=== PATIENT | female | born 1975 | race African-American/Black ===

== ENCOUNTER 2025-02-06 07:47 | Emergency (ER) | payer BC, OTHER ==
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
--- NOTE | 2025-02-06 08:30 | RAD REPORT ---
Procedure: Chest Single View HISTORY: Chest pain COMPARISON: September 2024 FINDINGS: The lungs appear clear of acute infiltrate. No significant pleural effusion noted. The heart is normal size. IMPRESSION: No acute abnormality is displayed.
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
[2025-02-06] MEDS ORDERED: KETOROLAC 30 MG/ML INJ ONE (08:46)
[2025-02-06] MEDS ORDERED: CYCLOBENZAPRINE 10 MG TAB ONE (08:46)
[2025-02-06 09:00] VITALS: BP 161/100; O2SAT 100
== END 2025-02-06 08:55 | disposition home or self-care (01) ==
LOC: ER 07:47
DX: S16.1XXA Strain of muscle, fascia and tendon at neck level, initial encounter (principal); S50.812A Abrasion of left forearm, initial encounter; V49.40XA Driver injured in collision with unspecified motor vehicles in traffic accident, initial encounter
CPT/HCPCS: 70450; 71045; 72125

== ENCOUNTER 2025-05-15 16:59 | Emergency (ER) | payer BC, OTHER ==
[2025-05-15 17:54] LABS: Absolute Lymphocytes (CBC) 1.5 K/uL (0.7-4.9); Hematocrit 39.3 % (36.0-45.0); Hemoglobin 13.2 g/dL (12.0-15.0); MCH 31.1 pg (27.0-35.0); MCHC 33.5 g/dL (32.0-36.0); MCV 92.9 fL (80-100); MPV 8.3 fL (7.6-11.3); Nucleated RBC Absolute Count 0.0 (0-0); Nucleated Red Blood Cells % 0.2 % (0-0); RBC Red Blood Cell Count 4.23 M/uL (3.86-4.86); White Blood Count 4.90 thou/uL (4.3-10.9)
[2025-05-15 18:11] LABS: ALT/SGPT 17 U/L (13-56); Albumin 3.8 g/dL (3.4-5.0); Albumin/Globulin Ratio 1.0 (1.1-1.8); Alkaline Phosphatase 83 U/L (45-117); Anion Gap 9.6 mEq/L (5.0-15.0); BUN Blood Urea Nitrogen 16 mg/dL (7-18); Globulin 3.8 g/dL (2.3-3.5); Glucose Level 101 mg/dL (74-106); Lipase 33 U/L (13-75); Potassium 3.6 mEq/L (3.5-5.1)
[2025-05-15 18:12] LABS: AST/SGOT < 10 U/L (15-37)
--- NOTE | 2025-05-15 18:46 | RAD REPORT ---
EXAM: Abdominal exam Limited ultrasound CLINICAL HISTORY: Abdominal pain COMPARISON: None FINDINGS: Gallbladder is contracted. Gallbladder wall appears thickened. A gallstone is not seen. Biliary tree normal caliber IMPRESSION: Limited evaluation of the gallbladder as it is contracted. Gallbladder wall appears thickened. This could be secondary to the gallbladder being contracted or in dicate chronic cholecystitis.
--- NOTE | 2025-05-15 19:09 | ER ---
Nurse's Notes [facility] Name: Susanne Lee Age: 49 yrs Sex: Female : 1975 Arrival Date: 05/15/2025 Time: 16:59 Bed 17 Private MD: Diagnosis: Upper abdominal pain, unspecified Presentation: 05/15 17:49 Chief complaint: Patient states: I have been having RUQ pain for the past 2 hours. jb4 Coronavirus screen: At this time, the client does not indicate any symptoms associated with coronavirus-19. Ebola Screen: No symptoms or risks identified at this time. Initial Sepsis Screen: Does the patient meet any 2 criteria? No. Patient's initial sepsis screen is negative. Does the patient have a suspected source of infection? No. Patient's initial sepsis screen is negative. Risk Assessment: Do you want to hurt yourself or someone else? Patient reports no desire to harm self or others. Onset of symptoms was May 15, 2025. Transition of care: patient was not received from another setting of care. 17:49 Method Of Arrival: Ambulatory jb4 17:49 Acuity: CAROLEE 3 jb4 Historical: - Allergies: 17:51 No Known Allergies; jb4 - PMHx: 17:51 Hypertensive disorder; IBS; high cholesterol; jb4 - PSHx: 17:51 hernia repairs; jb4 - Immunization history:: Adult Immunizations up to date. - Infectious Disease History:: Denies. - Social history:: Smoking status: Patient denies any tobacco usage or history of. Screenin:53 [facility] ED Fall Risk Assessment (Adult) History of falling in the last 3 months, jb4 including since admission No falls in past 3 months (0 pts) Confusion or Disorientation No (0 pts) Intoxicated or Sedated No (0 pts) Impaired Gait No (0 pts) Mobility Assist Device Used No (0 pt) Altered Elimination No (0 pt) Score/Fall Risk Level 0 - 2 = Low Risk Oriented to surroundings, Maintained a safe environment. Abuse screen: Denies threats or abuse. Nutritional screening: No deficits noted. Tuberculosis screening: No symptoms or risk factors identified. Assessment: 17:53 General: Appears in no apparent distress. uncomfortable, Behavior is calm, cooperative, jb4 appropriate for age. Pain: Complains of pain in right upper quadrant Pain does not radiate. Pain currently is 8 out of 10 on a pain scale. Neuro: Level of Consciousness is awake, alert, obeys commands, Oriented to person, place, time, situation. Cardiovascular: Patient's skin is warm and dry. Respiratory: Airway is patent Respiratory effort is even, unlabored, Respiratory pattern is regular, symmetrical. GI: Abdomen is flat, non-distended, Reports upper abdominal pain. Derm: Skin is intact, Skin is pink, warm \T\ dry. Musculoskeletal: Circulation, motion, and sensation intact. Range of motion: intact in all extremities. 19:32 Reassessment: Patient appears in no apparent distress at this time. Patient and/or jb4 family updated on plan of care and expected duration. Pain level reassessed. Patient is alert, oriented x 3, equal unlabored respirations, skin warm/dry/pink. Vital Signs: 17:49 BP 144 / 94; Pulse 77; Resp 16; Temp 98; Pulse Ox 100% on R/A; Weight 83.91 kg (R); jb4 Height 5 ft. 1 in. ; 19:32 BP 137 / 93; Pulse 75; Resp 16; Pulse Ox 98% ; jb4 17:49 Body Mass Index 34.96 (83.91 kg, 154.94 cm) jb4 ED Course: 17:03 Patient arrived in ED. cj3 17:04 Danitza Bautista FNP-C [facility]. kb 17:04 Collin Sahu MD is Attending Physician. kb 17:49 CBC with Diff Sent. jb4 17:49 CMP Sent. jb4 17:49 Lipase Sent. jb4 17:51 Triage completed. jb4 17:51 Arm band placed on right wrist. jb4 17:53 No provider procedures requiring assistance completed. Inserted saline lock: 20 gauge jb4 in right antecubital area, using aseptic technique. Blood collected. 17:53 Patient has correct armband on for positive identification. Bed in low position. Call jb4 light in reach. Side rails up X 1. Provided Education on: plan of care. 18:12 Abdomen Limited US In Process Unspecified. EDMS 19:32 IV discontinued, intact, bleeding controlled, No redness/swelling at site. Pressure jb4 dressing applied. Administered Medications: No medications were administered Medication: 17:53 VIS not applicable for this client. jb4 Outcome: 19:08 Discharge ordered by . suraj 19:32 Discharged to home ambulatory, jb4 19:32 Condition: stable 19:32 Discharge instructions given to patient, Instructed on discharge instructions, follow up and referral plans. medication usage, Demonstrated understanding of instructions, follow-up care, medications, Prescriptions given X 2, 19:32 Patient left the ED. jb4 Signatures: Dispatcher [employer] EDMS Danitza Bautista, EILEEN-[employer] DELIVERY CONSULTANT-Patrice Lee, RN RN jb4 Hui Golden cj3
--- NOTE | 2025-05-15 19:09 | EDPHYS ---
Physician Documentation [facility] Name: Susanne Lee Age: 49 yrs Sex: Female : 1975 Arrival Date: 05/15/2025 Time: 16:59 Bed 17 Private MD: ED Physician Collin Sahu HPI: 05/15 17:23 This 49 yrs old Black Female presents to ER via Unassigned with complaints of Abdominal kb Pain. 17:23 Patient is a 49-year-old female who presents for right upper quadrant pain that started kb 2 hours prior to arrival. Denies nausea, vomiting, diarrhea, fever. States she did start Trizepatide 2 weeks ago.. Historical: - Allergies: 17:51 No Known Allergies; jb4 - PMHx: 17:51 Hypertensive disorder; IBS; high cholesterol; jb4 - PSHx: 17:51 hernia repairs; jb4 - Immunization history:: Adult Immunizations up to date. - Infectious Disease History:: Denies. - Social history:: Smoking status: Patient denies any tobacco usage or history of. ROS: 17:25 Constitutional: As per HPI kb Exam: 17:25 Constitutional: This is a well developed, well nourished patient who is awake, alert, kb and in no acute distress. Head/Face: Normocephalic, atraumatic. ENT: Moist Mucous membranes Cardiovascular: Regular rate Respiratory: Respirations even and unlabored. No increased work of breathing. Talking in full sentences Skin: Warm, dry with normal turgor. Normal color. MS/ Extremity: Pulses equal, no cyanosis. Neurovascular intact. Full, normal range of motion. Neuro: Awake and alert, GCS 15, oriented to person, place, time, and situation. 17:25 Abdomen/GI: Inspection: abdomen appears normal, Bowel sounds: normal, Palpation: soft, in all quadrants, moderate abdominal tenderness, in the right upper quadrant, Vital Signs: 17:49 BP 144 / 94; Pulse 77; Resp 16; Temp 98; Pulse Ox 100% on R/A; Weight 83.91 kg (R); jb4 Height 5 ft. 1 in. ; 19:32 BP 137 / 93; Pulse 75; Resp 16; Pulse Ox 98% ; jb4 17:49 Body Mass Index 34.96 (83.91 kg, 154.94 cm) jb4 MDM: 17:04 Medical Screening Exam initiated kb 19:07 Differential diagnosis: cholecystitis, Cholelithiasis, gastritis, gastroesophageal kb reflux disease, non-specific abd pain, pancreatitis. Data reviewed: vital signs, nurses notes. 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 05/15 17:22 Order name: CBC with Diff; Complete Time: 18:07 kb 05/15 17:22 Order name: CMP; Complete Time: 18:14 kb 05/15 17:22 Order name: Lipase; Complete Time: 18:14 kb 05/15 17:22 Order name: Abdomen Limited US; Complete Time: 18:56 kb 05/15 17:22 Order name: IV Saline Lock; Complete Time: 17:49 kb 05/15 17:22 Order name: Labs collected and sent; Complete Time: 17:49 kb Administered Medications: No medications were administered Disposition Summary: 05/15/25 19:08 Discharge Ordered Notes: Location: Home kb Condition: Stable kb Diagnosis - Upper abdominal pain, unspecified kb Followup: kb - With: Emergency Department - When: As needed - Reason: Worsening of condition Followup: kb - With: Private Physician - When: 2 - 3 days - Reason: Recheck today's complaints, Continuance of care, Re-evaluation by your physician Discharge Instructions: - Discharge Summary Sheet kb - Abdominal Pain, Adult, [id number] kb Forms: - Medication Reconciliation Form kb - Antibiotic Education kb - Prescription Opioid Use kb - Patient Portal Instructions kb - Leadership Thank You Letter kb Prescriptions: - ondansetron 4 mg Oral Tablet,disintegrating - take 1 tablet ORAL route every 6 hours as needed for nausea and vomiting; 12 kb tablet; Refills: 0, Product Selection Permitted - dicyclomine 20 mg Oral tablet - take 1 tablet ORAL route 4 times per day As needed; 20 tablet; Refills: 0, kb Product Selection Permitted Signatures: Dispatcher [employer] Danitza Augustin, EILEEN-C EILEEN-Patrice Lee, RN RN jb4 Corrections: (The following items were deleted from the chart) 17: 17: CBC+H.LAB.BRZ ordered. EDMS EDMS 17: 17: COMPREHENSIVE METABOLIC PANEL+C.LAB.BRZ ordered. EDMS EDMS 17: 17:23 LIPASE+C.LAB.BRZ ordered. EDMS EDMS 17: 17: Abdomen Limited+US.RAD.BRZ ordered. EDMS EDMS
== END 2025-05-15 19:32 | disposition home or self-care (01) ==
LOC: ER 16:59
DX: R10.11 Right upper quadrant pain (principal)
CPT/HCPCS: 36415; 76705; 80053; 83690; 85025; 99284